=== PATIENT | female | born 1950 | race Caucasian/White ===

== ENCOUNTER 2017-05-26 14:16 | Outpatient (CLI) | payer MEDICARE ==
[2017-05-26 18:13] LABS: ALBUMIN/GLOBULIN RATIO 1.6 (1.0-2.2); BILIRUBIN,TOTAL 0.7 mg/dL (0.2-1.0); BUN - BLOOD UREA NITROGEN 23 mg/dL (6-20); CALCIUM 9.6 mg/dL (8.5-10.3); CARBON DIOXIDE - CO2 23 mmol/L (21-32); CHLORIDE 105 mmol/L (101-111); CHOL/HDL RATIO 2.3 (<4.4); CHOLESTEROL 181 mg/dL; GFR - MDRD 55 (>89); GLUCOSE 124 mg/dL (70-100); HDL CHOLESTEROL 80 mg/dL; POTASSIUM 3.8 mmol/L (3.5-5.0); SODIUM 139 mmol/L (135-145); TOTAL PROTEIN 7.4 g/dL (6.7-8.2); TRIGLYCERIDES 120 mg/dL; VLDL CHOLESTEROL 24 mg/dL
== END 2017-05-26 14:17 | disposition home or self-care (01) ==
LOC: LAB.F 14:16
PROVIDERS: ATTEND Internal Medicine
DX: R35.8 Other polyuria (principal); E66.9 Obesity, unspecified; L30.9 Dermatitis, unspecified
CPT/HCPCS: 36415; 80053; 80061